=== PATIENT | male | born 1960 | race Caucasian/White ===

== ENCOUNTER 2019-04-09 05:56 | Observation (INO) ==
[2019-04-09 06:36] LABS: Basophils % 0.3 % (0.0-0.8); Eosinophils # 0.2 10*3/uL (0.0-0.87); Eosinophils % 1.7 % (0.00-10.9); Hematocrit 41.5 VOL% (42.0-52.0); Hemoglobin 14.2 GM/DL (14.0-18.0); Immature Granulocytes % 0.6 %; Immature Granulocytes Absolute 0.08 #; Lymphocytes # 0.7 10*3/uL (1.4-4.0); Lymphocytes % 4.9 % (21.2-54.2); Mean Corpuscular HGB Conc 34.2 GM/DL (32-36); Mean Corpuscular Volume 89.1 FL (87-102); Mean Platelet Volume 10.7 FL (9.6-12.0); Monocytes % 7.8 % (1.7-12.7); Neutrophils % 84.7 % (38.7-73.9); Platelet Count 180 T/CUMM (130-400); Red Blood Count 4.66 MC/CUMM (3.8-5.5); Red Cell Distribution Width 11.9 % (9.3-17.3); White Blood Count 13.9 T/CUMM (4-12)
[2019-04-09 06:46] LABS: INR 0.9; PT Patient Result 10.1 SECS (9.6-12.2)
[2019-04-09 07:03] LABS: Albumin 3.7 G/DL (3.4-5.0); Bilirubin,Total 0.4 MG/DL (0.2-1.0); Calcium 8.2 MG/DL (8.5-10.1); Osmolality,Calculated 290.8 MOS/KG (273-304); Total Protein 6.9 G/DL (6.4-8.3)
[2019-04-09 07:08] LABS: Lymphocytes 4 % (20-55); Platelet Estimate Decreased; Segmented Neutrophils 95 % (50-85); Total Cells Counted 100
[2019-04-09] MEDS ORDERED: ONDANSETRON 4 MG/2 ML VIAL IV PRN (07:26)
[2019-04-09] MEDS ORDERED: MAGNESIUM SULF RIDER 4 GM in PREMIX 1 EACH IV PRN (07:27)
[2019-04-09] MEDS ORDERED: MAGNESIUM SULF RIDER 2 GM in PREMIX 1 EACH IV PRN (07:27)
[2019-04-09 10:07] LABS: Troponin I < 0.015 NG/ML (0.00-0.045)
[2019-04-09] MEDS: PANTOPRAZOLE 40 MG TABLET PO SCH (11:03)
[2019-04-09] MEDS: ASPIRIN EC 81 MG TABLET PO SCH (11:03)
[2019-04-09] MEDS: ACETAMINOPHEN 325 MG TABLET PO PRN ×2 (11:44→18:24)
[2019-04-09 12:41] LABS: Troponin I < 0.015 NG/ML (0.00-0.045)
[2019-04-09] MEDS ORDERED: SODIUM CHLORIDE 0.9% 1,000 ML IV SCH (14:30)
[2019-04-09] MEDS ORDERED: SIMETHICONE CHEW 125 MG TABLET PO PRN (21:37)
[2019-04-10 04:38] LABS: Basophils % 0.3 % (0.0-0.8); Eosinophils # 0.2 10*3/uL (0.0-0.87); Hematocrit 41.6 VOL% (42.0-52.0); Hemoglobin 14.1 GM/DL (14.0-18.0); Immature Granulocytes % 0.7 %; Immature Granulocytes Absolute 0.05 #; Lymphocytes # 0.7 10*3/uL (1.4-4.0); Lymphocytes % 8.7 % (21.2-54.2); Mean Corpuscular HGB Conc 33.9 GM/DL (32-36); Mean Corpuscular Volume 89.8 FL (87-102); Mean Platelet Volume 10.7 FL (9.6-12.0); Monocytes % 6.9 % (1.7-12.7); Neutrophils % 81.4 % (38.7-73.9); Platelet Count 165 T/CUMM (130-400); Red Blood Count 4.63 MC/CUMM (3.8-5.5); Red Cell Distribution Width 12.1 % (9.3-17.3); White Blood Count 7.6 T/CUMM (4-12)
[2019-04-10 04:48] LABS: Apearance,Urine CLEAR (Clear); Bilirubin,Urine Negative (Negative); Blood, Urine Negative (Negative); Glucose,Urine (UA) Negative (Negative); Ketones,Urine Negative (Negative); Nitrite,Urine Negative (Negative); Protein,Urine Negative; RBC,Urine <1 /HPF (0-4); Urine Color Yellow (Yellow); Urine Specific Gravity 1.017 (1.001-1.035); Urine Urobilinogen < 2.0 EU/DL (0.2-1.0)
[2019-04-10 05:10] LABS: Osmolality,Calculated 278.7 MOS/KG (273-304); Risk Ratio 4.58; Thyroid Stimulating Hormone 0.479 uIU/ml (0.358-3.74); VLDL CHOLESTEROL 32.2 MG/DL
[2019-04-10] MEDS: ASPIRIN EC 81 MG TABLET PO SCH (08:28)
[2019-04-10] MEDS: PANTOPRAZOLE 40 MG TABLET PO SCH (08:28)
[2019-04-10] MEDS: ACETAMINOPHEN 325 MG TABLET PO PRN (08:28)
[2019-04-10] MEDS ORDERED: SODIUM CHLORIDE 0.9% 1,000 ML IV ONE (08:37)
[2019-04-10 10:42] VITALS: BP 120/55
== END 2019-04-10 12:44 | disposition home or self-care (01) ==
LOC: EDSEX → EDBD → EDUNIT# → N.ED 05:56 → N.EDINP 05:56 → SUATTDRO 07:26 → SUPCPDRO 07:26 → N.2W 09:00
PROVIDERS: ADMIT Phlebology; ATTEND Internal Medicine Nephrology